=== PATIENT | female | born 1980 | race Two or more races ===

== ENCOUNTER 2016-12-26 13:11 | Emergency (ER) | payer BC, OTHER ==
[~2016-12-26] VITALS: Ht 152.4 cm; Wt 68.0 kg
--- NOTE | 2016-12-26 14:02 | NUR ---
PT BIB SELF C/O LLQ ABD PAIN RADIATING TO L FLANK X2 DAYS. DENIES HEMAUTIRA, DYSURIA, FREQUENCY. DENIES N/V/D. RESP EVEN UNLABORED. SKIN WARM NONDIAPHORETIC. AMBULATORY WITH STEADY GAIT. NAD NOTED. IN ER BED 09.
[2016-12-26 14:21] LABS: BASOPHILS % (AUTO) 0.3 % (0.0-2.0); EOSINOPHILS # (AUTO) 0.3 /CMM (0.0-0.7); EOSINOPHILS % (AUTO) 3.9 % (0.0-6.0); HEMATOCRIT 42 % (33-45); HEMOGLOBIN 14.3 g/dL (11.5-14.8); LYMPHOCYTES # (AUTO) 1.7 /CMM (0.8-4.8); LYMPHOCYTES % (AUTO) 23.1 % (20.0-44.0); MEAN CORPUSCULAR HEMOGLOBIN 29 PG (26.0-33.0); MEAN CORPUSCULAR HGB CONC 34 g/dl (31.0-36.0); MEAN CORPUSCULAR VOLUME 86 fL (82-100); MONOCYTES # (AUTO) 0.6 /CMM (0.1-1.30); MONOCYTES % (AUTO) 7.7 % (2.0-12.0); NEUTROPHILS # (AUTO) 4.9 /CMM (1.8-8.9); PLATELET COUNT (AUTO) 207 /CMM (150-450); RDW COEFFICIENT OF VARIATION 12.4 (11.5-15.0); RED BLOOD CELL COUNT(AUTO) 4.88 MIL/uL (4.0-5.2); WHITE BLOOD COUNT (AUTO) 7.5 K/uL (4.3-11.0)
[2016-12-26 14:27] LABS: BILIRUBIN,URINE Negative (NEGATIVE); BLOOD, URINE Moderate Ery/uL (NEGATIVE); COLOR,URINE Yellow (YELLOW); KETONES,URINE Negative (NEGATIVE); LEUKOCYTE ESTERASE ,URINE Negative (NEGATIVE); NITRITE, URINE Negative (NEGATIVE); PROTEIN,URINE Trace mg/dl (NEGATIVE); UGLUCOSE Negative (NEGATIVE)
[2016-12-26 14:28] LABS: APPEARANCE,URINE HAZY (CLEAR)
[2016-12-26 14:29] LABS: ADD URINE CULTURE NO; BACTERIA,URINE Few /HPF (None Seen); PREGNANCY TEST URINE QUAL NEGATIVE (NEGATIVE); SQUAMOUS EPITHELIAL CELL,UR Few /HPF (None Seen)
[2016-12-26] MEDS ORDERED: KETOROLAC TROMETHAMINE INJ 60 MG/2 ML VIAL IM ONE (14:30)
[2016-12-26] MEDS ORDERED: HYDROCODONE/APAP 5/325MG 1 EACH TABLET PO ONE (14:30)
[2016-12-26] MEDS ORDERED: HYDROCODONE/APAP 5/325MG 1 EACH TABLET ONE (14:30)
[2016-12-26] MEDS ORDERED: KETOROLAC TROMETHAMINE INJ 30 MG/ML VIAL ONE (14:31)
[2016-12-26 14:32] LABS: CREATININE 0.6 mg/dL (0.6-1.3)
[2016-12-26 14:37] LABS: ALBUMIN 3.9 g/dL (3.4-5.0); BILIRUBIN,TOTAL 0.3 mg/dL (0.2-1.0); CALCIUM, SERUM 8.9 mg/dL (8.5-10.1); TOTAL PROTEIN, SERUM 7.3 g/dL (6.4-8.2)
--- NOTE | 2016-12-26 14:56 | NUR ---
US TECH AT BEDSIDE
[2016-12-26 15:32] VITALS: BP 104/77
--- NOTE | 2016-12-26 15:32 | NUR ---
Patient discharged to home in stable condition. Written and verbal after care instructions given. Patient verbalizes understanding of instruction.
== END 2016-12-26 15:32 | disposition home or self-care (01) ==
LOC: ER 13:13
DX: S33.5XXA Sprain of ligaments of lumbar spine, initial encounter (principal); X58.XXXA Exposure to other specified factors, initial encounter; Y92.89 Other specified places as the place of occurrence of the external cause; Y93.89 Activity, other specified; Y99.8 Other external cause status
CPT/HCPCS: 36415; 76856; 80048; 80076; 81001; 83690; 84703; 85025; 87086; 96372; 99285; A4606; J1885; Z7610; 81000-TC